=== PATIENT | female | born 2000 | race Caucasian/White ===

== ENCOUNTER 2025-04-02 10:18 | Outpatient (CLI) | payer OTHER, SELFPAY ==
--- NOTE | 2025-04-02 10:28 | US_ITS ---
WS: [id number] RIGHT UPPER QUADRANT ULTRASOUND HISTORY: ABDOMINAL CRAMPING COMPARISON: None available. Liver: 15.3 cm in length. Normal size liver and echogenicity. No bile duct dilatation or mass. Portal Vein: Normal hepatopetal flow with monophasic waveform. Gallbladder: Normally distended gallbladder with no stones or wall thickening. CBD: 0.4 cm Pancreas: Normal size and echogenicity. Right kidney: 10.1 cm in length. Normal size and echogenicity. No hydronephrosis or mass. Aorta and IVC: Unremarkable abdominal aorta and IVC. No ascites. US/US abdomen limited [id number] IMPRESSION: Normal right upper quadrant ultrasound.
--- NOTE | 2025-04-02 10:28 | US_ITS ---
WS: [id number] US pelv w/transvag [id number] HISTORY: DYSMENORRHEA COMPARISON: None available. Uterus: 6.5 cm x 3.8 cm x 3.2 cm. Normal size anteverted uterus. No fibroid or mass. Endometrium: 1.0 cm. Normal. Right ovary: 3.3 cm x 2.9 cm x 2.9 cm. Normal size and vascularity, no cystic or solid masses. Dominant RIGHT ovarian follicle measures 1.9 x 1.9 x 2.1 cm. Left ovary: 2.4 cm x 2.2 cm x 1.0 cm. Normal size and vascularity, no cystic or solid masses. Small follicle measures 1.2 x 1.4 x 0.8 cm. No free fluid in the cul-de-sac. US/US pelv w/transvag [id number] IMPRESSION: 1. Normal pelvic ultrasound. 2. No free fluid. 3. Small bilateral ovarian follicles.
== END 2025-04-02 10:19 | disposition home or self-care (01) ==
PROVIDERS: Visit Provider Nurse Practitioner Adult Health
DX: R10.31 Right lower quadrant pain (principal); R10.32 Left lower quadrant pain; N94.6 Dysmenorrhea, unspecified; R93.89 Abnormal findings on diagnostic imaging of other specified body structures
CPT/HCPCS: 76705; 76830; 76856